=== PATIENT | male | born 1995 | race Caucasian/White ===

== ENCOUNTER 2016-11-27 18:13 | Emergency (ER) | payer MEDICAID ==
[~2016-11-27] VITALS: Ht 165.1 cm; Wt 57.2 kg
[2016-11-27 21:41] VITALS: BP 150/84
== END 2016-11-27 21:41 | disposition home or self-care (01) ==
LOC: EDSEX 18:13 → ED 18:13
DX: N39.0 Urinary tract infection, site not specified (principal); R31.9 Hematuria, unspecified
CPT/HCPCS: 87491; 87591; J0696; J2001